=== PATIENT | female | born 1930 | race Two or more races ===

== ENCOUNTER 2017-12-23 11:54 | Emergency (ER) | payer MEDICARE, BC ==
[~2017-12-23] VITALS: Ht 157.5 cm; Wt 61.2 kg
--- NOTE | 2017-12-23 12:30 | NUR ---
SENT BY PMD FOR RT SHOULDER DISLOCATION SINCE FRIDAY AM. DENIES FALL, HAPPENED DURING SLEEP. SEEN BY MD FOR EVAL. FAMILY MEMBER AT RECENTLY TOOK DILAUDID PO AT HOME. VSS. SAFETY AND COMFORT MEASURES PROVIDED. WILL MONITOR.
[2017-12-23] MEDS ORDERED: MORPHINE SULFATE INJ 4 MG/ML DISP.SYRIN ONE (12:51)
[2017-12-23] MEDS ORDERED: IV NS 0.9% 250 ML BAG IV ONE (13:00)
[2017-12-23 13:04] LABS: BASOPHILS % (AUTO) 0.2 % (0.0-2.0); EOSINOPHILS % (AUTO) 0.4 % (0.0-6.0); HEMATOCRIT 26 % (33-45); HEMOGLOBIN 8.4 g/dL (11.5-14.8); LYMPHOCYTES # (AUTO) 0.7 /CMM (0.8-4.8); MEAN CORPUSCULAR HGB CONC 33 g/dl (31.0-36.0); MEAN CORPUSCULAR VOLUME 87 fL (82-100); MONOCYTES # (AUTO) 0.4 /CMM (0.1-1.30); MONOCYTES % (AUTO) 4.9 % (2.0-12.0); NEUTROPHILS # (AUTO) 6.2 /CMM (1.8-8.9); NEUTROPHILS % (AUTO) 85.5 % (43.0-81.0); PLATELET COUNT (AUTO) 523 /CMM (150-450); RDW COEFFICIENT OF VARIATION 18.6 (11.5-15.0); RED BLOOD CELL COUNT(AUTO) 2.98 MIL/uL (4.0-5.2); WHITE BLOOD COUNT (AUTO) 7.4 K/uL (4.3-11.0)
[2017-12-23] MEDS: MORPHINE SULFATE INJ 2 MG/ML DISP.SYRIN IV ONE ×2 (13:05→13:19)
[2017-12-23 13:14] LABS: CALCIUM, SERUM 8.6 mg/dL (8.5-10.1); CARBON DIOXIDE 29 mmol/L (21-32); CHLORIDE 103 mmol/L (98-107); CREATININE 0.5 mg/dL (0.6-1.3); GLUCOSE 135 mg/dL (74-106); POTASSIUM 3.3 mmol/L (3.5-5.1); SODIUM SERUM 140 mmol/L (136-145); UREA NITROGEN, BLOOD 21 mg/dL (7-18)
[2017-12-23 13:46] LABS: INR 5.44 (0.87-1.13)
--- NOTE | 2017-12-23 15:16 | NUR ---
REX SEQUEIRA [phone]
[2017-12-23 16:47] VITALS: BP 135/71
== END 2017-12-23 16:48 | disposition home or self-care (01) ==
LOC: ER 11:58
DX: M25.511 Pain in right shoulder (principal); M19.011 Primary osteoarthritis, right shoulder; D64.9 Anemia, unspecified; E03.9 Hypothyroidism, unspecified; J45.909 Unspecified asthma, uncomplicated; K72.90 Hepatic failure, unspecified without coma; Z88.0 Allergy status to penicillin
CPT/HCPCS: 36415; 73030-TC; 80048-TC; 85025-TC; 85730-TC; A4606; J2270; J7040; Z7610